=== PATIENT | female | born 1990 | race Hispanic/Latino ===

== ENCOUNTER 2017-05-04 13:17 | Emergency (ER) | payer OTHER ==
[~2017-05-04] VITALS: Ht 152.4 cm; Wt 66.6 kg
[~2017-05-04 13:17] MED LIST: LOPE2TAB17 PO
[2017-05-04 13:28] VITALS: BP 113/74; PULSE 66; RESP 16; O2SAT 98
--- NOTE | 2017-05-04 14:13 | ED.REPORT ---
HPI-URI / Cough / Cold Date of Service May 04, 2017 ED Provider: Marine Gonzalez History of Present Illness: sick for 3 days, coughing, hard time sleeping last night. primary care is in [facility] in [place]. here visiting locally.no vomiting. medications none. Her with Mom, has down's syndrome Nursing Notes Stated Complaint: COUGH Chief Complaint: FLU/Cold Symptoms Nursing Notes Reviewed: Yes Allergies: Coded Allergies: No Known Allergies (Verified , 05/04/17) Scheduled PRN Loperamide-Expunged Drug, Do Not Renew! (Imodium D-M-Baqzxqee Drug, Do Not Renew !) 2 Mg Tablet 1 PO Q4 PRN PRN General Time Seen by MD: 14:12 Chief Complaint Cough, non-productive, Nasal congestion, Runny nose Hx Obtained From: Patient Onset Occurred: 3 days ago Symptom Duration: Since onset Past Medical History Past Medical History Down's Denies: Asthma, Diabetes mellitus Past Surgical History heart surgery as a child and umbilica hernia Smoking History Never Smoker Social History Alcohol Use: Denies alcohol use Drug Use: Denies drug use Occupation lives with Mom no work or school 05/04/2017 Ambulatory Status Independent Review of Systems Basic Review of Systems Cardiovascular: No chest pain, No dyspnea on exertion, No orthopnea, No parox noct dyspnea, No palpitations Psychiatric: Normal thought content Physical Exam Initial Vital Signs Vital Signs (First) Date Time Temp Pulse Resp B/P Pulse Ox O2 Delivery O2 Flow Rate FiO2 05/04/17 13:28 36.8 66 16 113/74 98 Room Air Initial VS: Reviewed, Vital signs normal Head / Eyes: Atraumatic, Normocephalic, PERRL Neck: Supple, Non-tender, Full range of motion Cardiovascular: Regular rate & rhythm, Heart sounds normal, Intact distal pulses Abdomen / GI: Soft, Non-tender, No guarding, No rebound, No distention Back: No CVA tenderness Lymphatic: No lymphadenopathy Extremities: Vascular intact, Neuro intact, No swelling, No tenderness Skin: Warm, Dry, No cyanosis Neurologic: Alert, Oriented, Nonfocal Psychiatric: Mood/affect normal, Behavior normal, Normal thought content General/Constitutional: Awake, Alert, No acute distress, Well appearing, Well developed, Well hydrated, Well nourished, Cooperative, Not toxic appearing ENT: Atraumatic, Airway patent, Mucous membranes moist, Pharynx NL, No peritonsillar abscess Respiratory / Chest: Atraumatic, Breath sounds NL, Breath sounds = bilat, No respiratory distress Head / Eyes: Atraumatic, Normocephalic, PERRL, EOMI Neck: Atraumatic, Supple, No meningismus Cardiovascular: Heart rate NL, Regular rhythm, Heart sounds NL, No gallop, No murmurs, No rubs Abdomen: Atraumatic, Soft, Non-tender, McBurney's non-tender Interpretation & Diagnostics Lab Results Interpretation Test 05/04/17 15:00 X-Ray Chest Interpretation Chest Xray Interpretation: PROCEDURE: X-RAY CHEST, TWO VIEWS ([id number]) INDICATIONS: cough, fevers TECHNIQUE: 2 views of the chest were acquired. COMPARISON: None. FINDINGS: Surgical changes and devices: None. Lungs and pleura: No pleural effusions or pneumothorax. Lungs are clear. Mediastinum: Mediastinal contours are normal. Heart size is normal. Bones and chest wall: No suspicious bony abnormalities. Soft tissues appear unremarkable. IMPRESSION: No acute pulmonary process. Dictated by: Siena Lee M.D. on 05/04/2017 at 15:20 Approved by: Siena Lee M.D. on 05/04/2017 at 15:21 Re-Eval/Medical Decision Med Decision/Clinical Course Med Decision/Clinical Course: 26 year old female with Downs presents with Mom for evualation of cough of 3 days duration. Denies fevers. Chest x-ray is negative. Patient is provided a dose of ibuprofen suspension. She is able to sleep after chest x-ray is completed. No sign of pneumonia. Discharge & Departure Impression: Primary Impression: Upper respiratory infection URI type: unspecified URI Qualified Code: J06.9 - Acute upper respiratory infection, unspecified Disposition: Home Patient Instructions: Upper Respiratory Infection (ED) Additional Instructions: The chest x-ray looks good. It does not show any sign of infection. Continue with ibuprofen 600 mg 3 times a day for 5 days. Also sudafed 30 mg in the am and pm will help with the congestion. As a precaution, antibiotics will be started daily for 5 days. Please follow with primary care. All the medication will be provided in liquid form. I am sorry you are feeling sick! Get better soon! Referrals: OTHER,PHYSICIAN EDSupervising Provider for APC: Memo Multani MD copies to: OTHER,PHYSICIAN Marine Gonzalez May 04, 2017 14:13
[2017-05-04] MEDS ORDERED: Ibuprofen Suspension 20 mg/mL 5 mL Suspension PO ONE (14:35)
--- NOTE | 2017-05-04 15:23 | DRSVH ---
PROCEDURE: X-RAY CHEST, TWO VIEWS ([id number]) INDICATIONS: cough, fevers TECHNIQUE: 2 views of the chest were acquired. COMPARISON: None. FINDINGS: Surgical changes and devices: None. Lungs and pleura: No pleural effusions or pneumothorax. Lungs are clear. Mediastinum: Mediastinal contours are normal. Heart size is normal. Bones and chest wall: No suspicious bony abnormalities. Soft tissues appear unremarkable. IMPRESSION: No acute pulmonary process. Dictated by: Siena Lee M.D. on 05/04/2017 at 15:20 Approved by: Siena Lee M.D. on 05/04/2017 at 15:21
[2017-05-04 16:16] VITALS: BP 111/68; PULSE 65; RESP 15; O2SAT 98
== END 2017-05-04 16:17 | disposition home or self-care (01) ==
LOC: SED 13:17
DX: J06.9 Acute upper respiratory infection, unspecified (principal)